=== PATIENT | female | born 1975 | race Two or more races ===

== ENCOUNTER 2017-09-07 14:34 | Emergency (ER) | payer SELFPAY ==
[~2017-09-07] VITALS: Ht 160 cm; Wt 85.3 kg
[2017-09-07] MEDS ORDERED: Ketorolac 60mg Inj IM ONE (15:15)
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
[2017-09-07] MEDS ORDERED: LIDODERM700 M1 TOPIC (15:26)
[2017-09-07] MEDS ORDERED: IBUPROFEN600 MG ORAL (15:26)
[2017-09-07] MEDS ORDERED: ROBAXIN500 MG PO (15:26)
[2017-09-07 15:43] VITALS: BP 143/77
== END 2017-09-07 15:41 | disposition home or self-care (01) ==
LOC: EDBD 14:34 → EMR 14:50
DX: M62.830 Muscle spasm of back (principal); M54.5 Low back pain; V43.52XA Car driver injured in collision with other type car in traffic accident, initial encounter; Y92.410 Unspecified street and highway as the place of occurrence of the external cause; Z88.0 Allergy status to penicillin; Z88.8 Allergy status to other drugs, medicaments and biological substances
CPT/HCPCS: 96372; 99283